=== PATIENT | male | born 1975 | race African-American/Black ===

== ENCOUNTER → 2019-08-25 | Outpatient (CLI) | payer OTHER | LOC: COL.RAD 09:51 | DX: E22.1 Hyperprolactinemia (principal); H53.8 Other visual disturbances | CPT/HCPCS: A9585 ==

== ENCOUNTER → 2021-09-17 | Outpatient (CLI) | payer OTHER | LOC: COL.PUL 11:17 | DX: Z02.71 Encounter for disability determination (principal) ==